=== PATIENT | male | born 1990 | race African-American/Black ===

== ENCOUNTER 2017-05-16 13:36 | Emergency (ER) | payer MEDICAID ==
[~2017-05-16] VITALS: Ht 175.3 cm; Wt 79.4 kg
--- NOTE | 2017-05-16 13:46 | NUR ---
SELF PRESENTS TO ED: SOB, WHEEZING, NAUSEA, VOMITING SINCE AM.
[2017-05-16] MEDS ORDERED: ALBUTEROL FS 2.5 MG/3 ML VIAL.NEB ONE (13:53)
[2017-05-16] MEDS ORDERED: IPRATROPIUM NEB FS 0.5 MG/2.5 ML AMPUL.NEB ONE (13:53)
[2017-05-16] MEDS: ALBUTEROL FS 2.5 MG/3 ML VIAL.NEB NEB ONE (13:57)
[2017-05-16] MEDS: IPRATROPIUM NEB FS 0.5 MG/2.5 ML AMPUL.NEB NEB ONE (13:57)
[2017-05-16] MEDS ORDERED: predniSONE 20 MG TABLET ONE (13:57)
[2017-05-16] MEDS: predniSONE 20 MG TABLET PO ONE (13:58)
[2017-05-16] MEDS: ONDANSETRON 4 MG TAB.RAPDIS SL ONE (13:58)
[2017-05-16] MEDS ORDERED: ONDANSETRON 4 MG TAB.RAPDIS ONE (13:58)
[2017-05-16] MEDS ORDERED: MAG HYDROX/AL HYDROX/SIMETH 30 ML UDC ONE (14:28)
[2017-05-16] MEDS: MAG HYDROX/AL HYDROX/SIMETH 30 ML UDC PO ONE (14:31)
--- NOTE | 2017-05-16 15:05 | NUR ---
Patient discharged to home in stable condition. Written and verbal after care instructions given. Patient verbalizes understanding of instruction.
[2017-05-16 15:06] VITALS: BP 140/83
== END 2017-05-16 15:07 | disposition home or self-care (01) ==
LOC: ER 13:38
DX: J45.901 Unspecified asthma with (acute) exacerbation (principal); F12.90 Cannabis use, unspecified, uncomplicated; Z98.890 Other specified postprocedural states
CPT/HCPCS: A4606; Q0162; Z7610

== ENCOUNTER 2017-09-07 21:18 | Emergency (ER) | payer MEDICAID ==
[~2017-09-07] VITALS: Ht 175.3 cm; Wt 72.6 kg
--- NOTE | 2017-09-07 21:20 | NUR ---
PATIENT RECEIVED FROM HOME STATING "HAVING A HRD TIMED BREATHING MAN AND I WANT TO CLEAR THAT UP". NO PAIN NOTED WELL NO SOB BUT DOES HAVE WHEEZING LEFT LOWER LUNG WITH AUSCULTATION. A/O X4 ABLE TO MAKE NEEDS KNOWN. WILL CONTINUE TO MONITOR OFF 02
[2017-09-07] MEDS ORDERED: predniSONE 20 MG TABLET ONE (21:48)
[2017-09-07] MEDS ORDERED: ALBUTEROL FS 2.5 MG/3 ML VIAL.NEB ONE (21:55)
[2017-09-07] MEDS ORDERED: IPRATROPIUM NEB FS 0.5 MG/2.5 ML AMPUL.NEB NEB ONE (22:00)
[2017-09-07] MEDS ORDERED: ALBUTEROL FS 2.5 MG/3 ML VIAL.NEB CONTNEB ONE (22:00)
[2017-09-07] MEDS ORDERED: predniSONE 20 MG TABLET PO ONE (22:00)
--- NOTE | 2017-09-07 23:10 | NUR ---
Patient discharged to home in stable condition. Written and verbal after care instructions given. Patient verbalizes understanding of instruction. ambulatory with a steady gait
[2017-09-07 23:11] VITALS: BP 132/73
== END 2017-09-07 23:11 | disposition home or self-care (01) ==
LOC: ER 21:21
DX: J45.901 Unspecified asthma with (acute) exacerbation (principal)
CPT/HCPCS: 94644; 99285; A4606; J7512; Z7610

== ENCOUNTER 2017-11-25 16:34 | Emergency (ER) | payer MEDICAID ==
[~2017-11-25] VITALS: Ht 175.3 cm; Wt 74.8 kg
[2017-11-25 17:18] LABS: APPEARANCE,URINE Clear (CLEAR); BILIRUBIN,URINE Negative (NEGATIVE); BLOOD, URINE Negative Ery/uL (NEGATIVE); COLOR,URINE Yellow (YELLOW); KETONES,URINE Negative (NEGATIVE); LEUKOCYTE ESTERASE ,URINE Trace (NEGATIVE); NITRITE, URINE Negative (NEGATIVE); PROTEIN,URINE Negative (NEGATIVE); UGLUCOSE Negative (NEGATIVE); UROBILINOGEN,URINE 0.2 EU/dL (0.2)
[2017-11-25] MEDS ORDERED: ONDANSETRON HCL/PF 4 MG/2 ML VIAL ONE (17:21)
[2017-11-25 17:23] LABS: BASOPHILS # (AUTO) 0.3 /CMM (0.0-0.2); BASOPHILS % (AUTO) 3.6 % (0.0-2.0); EOSINOPHILS # (AUTO) 0.6 /CMM (0.0-0.7); EOSINOPHILS % (AUTO) 6.2 % (0.0-6.0); HEMATOCRIT 49 % (39-51); HEMOGLOBIN 16.5 g/dL (13.5-17.5); LYMPHOCYTES # (AUTO) 1.7 /CMM (0.8-4.8); LYMPHOCYTES % (AUTO) 18.5 % (20.0-44.0); MEAN CORPUSCULAR HEMOGLOBIN 30 PG (26.0-33.0); MEAN CORPUSCULAR HGB CONC 34 g/dl (31.0-36.0); MEAN CORPUSCULAR VOLUME 88 fL (80-96); MONOCYTES # (AUTO) 0.7 /CMM (0.1-1.30); MONOCYTES % (AUTO) 7.6 % (2.0-12.0); NEUTROPHILS # (AUTO) 5.9 /CMM (1.8-8.9); NEUTROPHILS % (AUTO) 64.1 % (43.0-81.0); PLATELET COUNT (AUTO) 216 /CMM (150-450); RDW COEFFICIENT OF VARIATION 13.1 (11.5-15.0); RED BLOOD CELL COUNT(AUTO) 5.53 MIL/uL (4.5-6.0); WHITE BLOOD COUNT (AUTO) 9.2 K/uL (4.3-11.0)
[2017-11-25] MEDS ORDERED: IV NS 0.9% 1,000 ML BAG IV ONE (17:30)
[2017-11-25] MEDS ORDERED: ONDANSETRON HCL/PF 4 MG/2 ML VIAL IVP ONE (17:30)
[2017-11-25 17:32] LABS: BACTERIA,URINE Few /HPF (None Seen); RBC,URINE 0-2 /HPF (0-2); SQUAMOUS EPITHELIAL CELL,UR Few /HPF (None Seen)
--- NOTE | 2017-11-25 17:40 | NUR ---
PT WANTS TO GET SOMETHING FROM HIS CAR, IV WAS REMOVED REQUESTED. FLUIDS DC'D. MADE AWARE.
[2017-11-25 17:43] LABS: ALBUMIN 3.8 g/dL (3.4-5.0); BILIRUBIN,DIRECT 0.2 mg/dL (0.0-0.2); BILIRUBIN,TOTAL 0.5 mg/dL (0.2-1.0); CALCIUM, SERUM 9.3 mg/dL (8.5-10.1); POTASSIUM 3.6 mmol/L (3.5-5.1); TOTAL PROTEIN, SERUM 7.3 g/dL (6.4-8.2)
--- NOTE | 2017-11-25 17:50 | NUR ---
PT REFUSED IV INSERTION. AWARE.
[2017-11-25 18:26] VITALS: BP 138/84
--- NOTE | 2017-11-25 18:26 | NUR ---
Patient discharged to home in stable condition. Written and verbal after care instructions given. Patient verbalizes understanding of instruction.
[2017-11-25] MEDS ORDERED: ONDANSETRON 4 MG TAB.RAPDIS ONE (18:45)
== END 2017-11-25 18:28 | disposition home or self-care (01) ==
LOC: ER 16:36
DX: R11.2 Nausea with vomiting, unspecified (principal); R19.7 Diarrhea, unspecified; R10.13 Epigastric pain; J45.909 Unspecified asthma, uncomplicated
CPT/HCPCS: 36415; 80048; 80076; 81001; 83690; 85025; 87086; 96374; 99284; A4606; J2405; J7030; Q0162; Z7610; 81000-TC

== ENCOUNTER 2018-01-14 04:34 | Emergency (ER) | payer MEDICAID ==
[~2018-01-14] VITALS: Ht 175.3 cm; Wt 77.1 kg
--- NOTE | 2018-01-14 06:30 | NUR ---
PT AMUBLATORY TO ER BED 11. PT BIB SELF, PT C/O MID EPIGASTRIC BURNING X 3 DAYS WITH N/V AND STATES HE NEEDS A MED REFILL. PT PLACED ON MERCHANDISE WORKER. VSS/RESP EVEN UNLABORED/NAD NOTED/SKIN WARM AND DRY/DENIES N-V-D/AFEBRILE/AOX4. AWAITING MD ISAAC.
[2018-01-14] MEDS ORDERED: MAG HYDROX/AL HYDROX/SIMETH 30 ML UDC ONE (06:51)
[2018-01-14] MEDS ORDERED: FAMOTIDINE (20 MG) 20 MG TABLET ONE (06:51)
[2018-01-14] MEDS ORDERED: ONDANSETRON 4 MG TAB.RAPDIS ONE (06:51)
[2018-01-14] MEDS ORDERED: FAMOTIDINE (20 MG) 20 MG TABLET PO ONE (07:00)
[2018-01-14] MEDS ORDERED: ONDANSETRON 4 MG TAB.RAPDIS SL ONE (07:00)
[2018-01-14] MEDS ORDERED: MAG HYDROX/AL HYDROX/SIMETH 30 ML UDC PO ONE (07:00)
--- NOTE | 2018-01-14 07:02 | NUR ---
LAB AT BEDSIDE TO DRAW.
--- NOTE | 2018-01-14 07:12 | NUR ---
ENDORSED TO LARA PICHARDO FOR TOSHIA.
[2018-01-14 07:15] LABS: BASOPHILS % (AUTO) 0.4 % (0.0-2.0); EOSINOPHILS % (AUTO) 10.6 % (0.0-6.0); HEMATOCRIT 48 % (39-51); HEMOGLOBIN 16.2 g/dL (13.5-17.5); LYMPHOCYTES # (AUTO) 1.5 /CMM (0.8-4.8); LYMPHOCYTES % (AUTO) 16.3 % (20.0-44.0); MEAN CORPUSCULAR HGB CONC 34 g/dl (31.0-36.0); MEAN CORPUSCULAR VOLUME 88 fL (80-96); MONOCYTES # (AUTO) 0.6 /CMM (0.1-1.30); MONOCYTES % (AUTO) 6.1 % (2.0-12.0); NEUTROPHILS # (AUTO) 6.1 /CMM (1.8-8.9); NEUTROPHILS % (AUTO) 66.6 % (43.0-81.0); PLATELET COUNT (AUTO) 235 /CMM (150-450); RDW COEFFICIENT OF VARIATION 13.1 (11.5-15.0); RED BLOOD CELL COUNT(AUTO) 5.42 MIL/uL (4.5-6.0); WHITE BLOOD COUNT (AUTO) 9.2 K/uL (4.3-11.0)
[2018-01-14 07:18] LABS: CALCIUM, SERUM 9.5 mg/dL (8.5-10.1); CREATININE 1.2 mg/dL (0.6-1.3); POTASSIUM 3.9 mmol/L (3.5-5.1)
[2018-01-14 07:24] LABS: BILIRUBIN,DIRECT 0.3 mg/dL (0.0-0.2); BILIRUBIN,TOTAL 2.3 mg/dL (0.2-1.0); TOTAL PROTEIN, SERUM 7.7 g/dL (6.4-8.2)
--- NOTE | 2018-01-14 08:57 | NUR ---
Patient discharged to home in stable condition. Written and verbal after care instructions given. Patient verbalizes understanding of instruction.
[2018-01-14 08:58] VITALS: BP 130/80
[2018-01-15] MEDS ORDERED: ALBU8.5H8 INH (14:06)
[2018-01-15] MEDS ORDERED: FLUT10.62 INH (14:06)
== END 2018-01-14 08:58 | disposition home or self-care (01) ==
LOC: ER 04:35
DX: R10.13 Epigastric pain (principal); R11.2 Nausea with vomiting, unspecified; J45.909 Unspecified asthma, uncomplicated; Z60.2 Problems related to living alone
CPT/HCPCS: 36415; 76705-TC; 80048-TC; 80076-TC; 83690-TC; 85025-TC; A4606; Q0162; Z7610

== ENCOUNTER 2018-01-15 08:21 | Inpatient (IN) | payer MEDICAID ==
[~2018-01-15] VITALS: Ht 177.8 cm; Wt 75.3 kg
--- NOTE | 2018-01-15 08:25 | NUR ---
NAUSEA, VOMITING, THROAT PAIN, ABD DISCOMFORT X 4DAYS. NAD NOTED. PT AAO X4, AMB WITH STEADY GAIT. VSS. PENDING MD ISAAC.
[2018-01-15] MEDS ORDERED: KETOROLAC TROMETHAMINE INJ 30 MG/ML VIAL ONE (08:49)
[2018-01-15] MEDS ORDERED: ONDANSETRON HCL/PF 4 MG/2 ML VIAL ONE (08:49)
[2018-01-15 08:57] LABS: APPEARANCE,URINE CLEAR (CLEAR); BILIRUBIN,URINE 2+ (NEGATIVE); BLOOD, URINE NEGATIVE Ery/uL (NEGATIVE); COLOR,URINE DARK YELLO (YELLOW); KETONES,URINE 1+ (NEGATIVE); LEUKOCYTE ESTERASE ,URINE NEGATIVE (NEGATIVE); NITRITE, URINE NEGATIVE (NEGATIVE); PROTEIN,URINE 1+ mg/dl (NEGATIVE); UGLUCOSE NEGATIVE (NEGATIVE); UROBILINOGEN,URINE 0.2 EU/dL (0.2)
[2018-01-15 08:58] LABS: BASOPHILS % (AUTO) 0.4 % (0.0-2.0); EOSINOPHILS % (AUTO) 11.6 % (0.0-6.0); HEMATOCRIT 50 % (39-51); LYMPHOCYTES # (AUTO) 1.9 /CMM (0.8-4.8); LYMPHOCYTES % (AUTO) 19.8 % (20.0-44.0); MEAN CORPUSCULAR HGB CONC 34 g/dl (31.0-36.0); MEAN CORPUSCULAR VOLUME 88 fL (80-96); MONOCYTES # (AUTO) 0.8 /CMM (0.1-1.30); MONOCYTES % (AUTO) 8.1 % (2.0-12.0); NEUTROPHILS # (AUTO) 5.6 /CMM (1.8-8.9); NEUTROPHILS % (AUTO) 60.1 % (43.0-81.0); PLATELET COUNT (AUTO) 232 /CMM (150-450); RDW COEFFICIENT OF VARIATION 12.1 (11.5-15.0); RED BLOOD CELL COUNT(AUTO) 5.67 MIL/uL (4.5-6.0); WHITE BLOOD COUNT (AUTO) 9.4 K/uL (4.3-11.0)
[2018-01-15] MEDS ORDERED: IV NS 0.9% 1,000 ML BAG IV ONE ×2 (09:00→13:00)
[2018-01-15] MEDS ORDERED: KETOROLAC TROMETHAMINE INJ 30 MG/ML VIAL IV ONE (09:00)
[2018-01-15] MEDS ORDERED: ONDANSETRON HCL/PF 4 MG/2 ML VIAL IVP ONE (09:00)
[2018-01-15 09:11] LABS: CALCIUM, SERUM 9.4 mg/dL (8.5-10.1); CREATININE 1.2 mg/dL (0.6-1.3); POTASSIUM 3.7 mmol/L (3.5-5.1)
[2018-01-15 09:19] LABS: ALBUMIN 4.2 g/dL (3.4-5.0); BILIRUBIN,DIRECT 0.4 mg/dL (0.0-0.2); BILIRUBIN,TOTAL 2.7 mg/dL (0.2-1.0); TOTAL PROTEIN, SERUM 7.9 g/dL (6.4-8.2)
[2018-01-15] MEDS ORDERED: ALBUTEROL FS 2.5 MG/0.5 ML VIAL.NEB ONE ×2 (09:30→09:58)
[2018-01-15] MEDS ORDERED: MAG HYDROX/AL HYDROX/SIMETH 30 ML UDC PO ONE (09:30)
[2018-01-15] MEDS ORDERED: ALBUTEROL FS 2.5 MG/0.5 ML VIAL.NEB NEB ONE ×2 (09:30→10:00)
[2018-01-15] MEDS ORDERED: MAG HYDROX/AL HYDROX/SIMETH 30 ML UDC ONE (09:31)
--- NOTE | 2018-01-15 09:35 | NUR ---
PT REPORTS SOB, PAGED RT FOR BREATHING TX. RT AT BEDISDE WITH BREATHING TX.
--- NOTE | 2018-01-15 09:45 | NUR ---
PT AGREED TO CT SCAN AFTER BREATHING TX.
[2018-01-15] MEDS ORDERED: DEXAMETHASONE SOD PHOSPHATE 10 MG/ML VIAL ONE (09:57)
[2018-01-15] MEDS ORDERED: IPRATROPIUM NEB FS 0.5 MG/2.5 ML AMPUL.NEB ONE (09:58)
[2018-01-15] MEDS ORDERED: DEXAMETHASONE SOD PHOSPHATE 10 MG/ML VIAL IV ONE (10:00)
[2018-01-15] MEDS ORDERED: IPRATROPIUM NEB FS 0.5 MG/2.5 ML AMPUL.NEB NEB ONE (10:00)
--- NOTE | 2018-01-15 10:03 | NUR ---
2ND DOSE OF BREATHING TX GIVEN BY RT
[2018-01-15 11:11] LABS: BACTERIA,URINE Rare /HPF (None Seen); MUCUS,URINE Few /LPF (None Seen); RBC,URINE 0-2 /HPF (0-2); SQUAMOUS EPITHELIAL CELL,UR Rare /HPF (None Seen); WBC,URINE 0-2 /HPF (0-3)
[2018-01-15] MEDS ORDERED: AZITHROMYCIN 500 MG in IV D5W 250 ML IV ONE (13:30)
[2018-01-15] MEDS ORDERED: CEFTRIAXONE 1GM BAG (ER ONLY) 1 GM/50 ML PIGGYBACK IV ONE (13:30)
[2018-01-15] MEDS ORDERED: CEFTRIAXONE 1GM BAG (ER ONLY) 50 ML IV ONE (13:36)
--- NOTE | 2018-01-15 13:36 | NUR ---
CALLED NURSING SUP. FOR TELE BED
[2018-01-15] MEDS ORDERED: ALBU8.5H8 INH (14:06)
[2018-01-15] MEDS ORDERED: FLUT10.62 INH (14:06)
--- NOTE | 2018-01-15 14:13 | NUR ---
TELE 115-1 LIGIA
[2018-01-15] MEDS ORDERED: ZOLPIDEM TARTRATE 5 MG TABLET PO PRN (15:00)
[2018-01-15] MEDS ORDERED: MAG HYDROX/AL HYDROX/SIMETH 30 ML UDC PO PRN (15:00)
[2018-01-15] MEDS ORDERED: MAGNESIUM HYDROXIDE 30 ML UDC PO PRN (15:00)
[2018-01-15] MEDS ORDERED: ONDANSETRON HCL/PF 4 MG/2 ML VIAL IVP PRN (15:00)
[2018-01-15] MEDS ORDERED: Z GUARD REMEDY 2 OZ OINT TP PRN (15:00)
[2018-01-15] MEDS ORDERED: ACETAMINOPHEN 325 MG TABLET PO PRN (15:00)
[2018-01-15] MEDS: PANTOPRAZOLE 40 MG VIAL IV SCH (15:28)
[2018-01-15] MEDS: IV D5W 1,000 ML IV PRN (15:28)
--- NOTE | 2018-01-15 15:30 | NUR ---
RN NOTE RECEIVED PT ON BED, AOX4, CO ABDOMINAL DISCOMFORT AND HUNGER, PT WANTS TO EAT, VS STABLE, NO SOB, NO N/V, IV IN PLACE ZITHROMAX INFUSING, FRIEND AT BED SIDE. CALL LIGHT WITHIN REACH, WILL WAIT FOR ADMITING ORDERS.
[2018-01-15 16:00] VITALS: BP 114/62
[2018-01-15] MEDS: METRONIDAZOLE 500MG/ NS 100ML 500 MG in PREMIX 1 EA IV SCH ×2 (16:34→23:27)
[2018-01-15] MEDS: HYDROCODONE/APAP 5/325MG 1 EACH TABLET PO PRN ×2 (16:34→20:34)
--- NOTE | 2018-01-15 19:30 | NUR ---
INSOLE LIP TURNER NOTES, RECEIVED PATIENT IN BED, ALERT AND ORIENTED, ABLE TO COMMUNICATE NEEDS AND CONCERNS, BREATHING EVEN AND UNLABORED, NO SOB/ACUTE DISTRESS NOTED AT THIS TIME, PATIENT NPO AT THIS TIME, WILL HAVE GI CONSULT IN THE MORNING, C/O HUNGER AND ACCORDING TO HIM THAT'S BECAUSE HES HUNGRY, WILL INFORM MD. ALL NEEDS PROVIDED AND , CALL LIGHT W/I REACH, WILL CONTINUE TO MONITOR CLOSELY.
[2018-01-15 20:00] VITALS: BP 117/69
--- NOTE | 2018-01-15 20:10 | NUR ---
DIMENSIONAL INSPECTOR NOTES, PAGED MD TO INFORM ABOUT PATIENT COMPLAIN, AND REQUESTING FOOD. AWAITING FOR REPLY.
--- NOTE | 2018-01-15 20:30 | NUR ---
PAINTINGS RESTORER NOTES, MD ISIDRO POT PRESS OPERATOR REPLIED THAT PATIENT NEEDS TO BE NPO AND TO ADMINISTER MEDICATIONS FOR PAIN ORDERED, IN ADDITION IF PATIENT HAS SEVERE PAIN, INCLUDE A NEW ORDER FOR MORPHINE 1MG IPV [id number] PRN FOR SEVERE PAIN. NOTED AND CARRIED OUT.
[2018-01-15] MEDS ORDERED: MORPHINE SULFATE INJ 4 MG/ML DISP.SYRIN IV PRN (21:00)
[2018-01-15] MEDS: ALBUTEROL FS 2.5 MG/3 ML VIAL.NEB NEB PRN (22:07)
[2018-01-15] MEDS: IPRATROPIUM NEB FS 0.5 MG/2.5 ML AMPUL.NEB NEB PRN (22:07)
[2018-01-15] MEDS: methylPREDNISolone SOD SUCC 40 MG/ML VIAL IV SCH (23:51)
[2018-01-16] VITALS: BP 128/68
[2018-01-16] MEDS: ALBUTEROL FS 2.5 MG/3 ML VIAL.NEB NEB PRN ×2 (00:52→07:32)
[2018-01-16] MEDS: IPRATROPIUM NEB FS 0.5 MG/2.5 ML AMPUL.NEB NEB PRN ×2 (00:52→07:32)
[2018-01-16 04:00] VITALS: BP 121/54
--- NOTE | 2018-01-16 06:50 | NUR ---
FISH DRIER NOTES, PATIENT IN BED, SLEEPING AT THIS TIME, , NO SOB/ACUTE DISTRESS NOTED AT THIS TIME, PATIENT NPO AT THIS TIME, WILL HAVE GI CONSULT IN THE MORNING, NO C/O PAIN OR DISCOMFORT AT THIS TIME, AND NO SIGNIFICANT CHANGE OF CONDITION THROUGHOUT THE SHIFT, ALL NEEDS PROVIDED AND , CALL LIGHT W/I REACH, WILL ENDORSE CONTINUITY OF CARE TO ONCOMING NURSE.
--- NOTE | 2018-01-16 07:43 | NUR ---
RN INITIAL NOTE PATIENT IN BED GIRLFRIEND AT BEDSIDE, NO DISTRESS NOTED AT THIS TIME PLAN OF CARE DISCUSSED WITH THE PATIENT. NO SOB NOTED PATIENT ON ROOM AIR , CURRENTLY NPO AWAITING FURTHER ORDERS FROM THE MD FOR PROCEDURE
[2018-01-16 08:00] VITALS: BP 123/69
[2018-01-16 08:04] LABS: BASOPHILS # (AUTO) 0.2 /CMM (0.0-0.2); BASOPHILS % (AUTO) 2.4 % (0.0-2.0); EOSINOPHILS % (AUTO) 0.1 % (0.0-6.0); HEMATOCRIT 43 % (39-51); HEMOGLOBIN 14.6 g/dL (13.5-17.5); LYMPHOCYTES # (AUTO) 1.1 /CMM (0.8-4.8); LYMPHOCYTES % (AUTO) 11.4 % (20.0-44.0); MEAN CORPUSCULAR HGB CONC 34 g/dl (31.0-36.0); MEAN CORPUSCULAR VOLUME 88 fL (80-96); MONOCYTES # (AUTO) 0.5 /CMM (0.1-1.30); MONOCYTES % (AUTO) 4.9 % (2.0-12.0); NEUTROPHILS # (AUTO) 7.9 /CMM (1.8-8.9); NEUTROPHILS % (AUTO) 81.2 % (43.0-81.0); PLATELET COUNT (AUTO) 215 /CMM (150-450); RDW COEFFICIENT OF VARIATION 12.2 (11.5-15.0); RED BLOOD CELL COUNT(AUTO) 4.88 MIL/uL (4.5-6.0); WHITE BLOOD COUNT (AUTO) 9.7 K/uL (4.3-11.0)
[2018-01-16 08:10] LABS: ALBUMIN 3.4 g/dL (3.4-5.0); BILIRUBIN,DIRECT 0.2 mg/dL (0.0-0.2); BILIRUBIN,TOTAL 1.4 mg/dL (0.2-1.0); CALCIUM, SERUM 8.8 mg/dL (8.5-10.1); CREATININE 1.1 mg/dL (0.6-1.3); MAGNESIUM 1.9 mg/dL (1.8-2.4); POTASSIUM 4.3 mmol/L (3.5-5.1); TOTAL PROTEIN, SERUM 6.5 g/dL (6.4-8.2)
[2018-01-16] MEDS: methylPREDNISolone SOD SUCC 40 MG/ML VIAL IV SCH ×3 (09:03→17:58)
[2018-01-16] MEDS: METRONIDAZOLE 500MG/ NS 100ML 500 MG in PREMIX 1 EA IV SCH ×3 (09:03→23:43)
[2018-01-16] MEDS: PANTOPRAZOLE 40 MG VIAL IV SCH (09:03)
[2018-01-16] MEDS: HYDROCODONE/APAP 5/325MG 1 EACH TABLET PO PRN ×2 (11:30→21:06)
[2018-01-16 12:00] VITALS: BP 104/71
[2018-01-16 12:02] LABS: LYMPHOCYTES % (MANUAL) 13 % (16-48); MONOCYTES % (MANUAL) 4 % (0-11.0); NEUTROPHILS % (MANUAL) 83 (42-76)
[2018-01-16] MEDS ORDERED: CEFTRIAXONE 1 G in IV D5W 50 ML IV SCH (14:00)
[2018-01-16] MEDS: FLUTICASONE 110MCG 1 EA INHALER IH SCH ×2 (14:20→18:02)
[2018-01-16 16:00] VITALS: BP 116/60
[2018-01-16 19:23] LABS: OCCULT BLOOD STOOL NEGATIVE (NEGATIVE)
--- NOTE | 2018-01-16 19:30 | NUR ---
FISH GRADER INITIAL NOTES, RECEIVED PATIENT IN BED, ALERT AND ORIENTED, ABLE TO COMMUNICATE NEEDS AND CONCERNS, GIRLFRIEND AT BEDSIDE, BREATHING EVEN AND UNLABORED, NO SOB/ACUTE DISTRESS NOTED AT THIS TIME, NO A/C PAIN OR DISCONFORT AT THIS TIME, FROM NPO TO CLEAR LIQUIDS AT THIS TIME, ALL NEEDS PROVIDED AND ANTICIPATED, CALL LIGHT W/I REACH, WILL CONTINUE TO MONITOR CLOSELY.
--- NOTE | 2018-01-16 19:37 | NUR ---
pattern technician note patient remains stable throughout the day mild pain noted , pain attended to patient girlfriend remains at bedside patient remains on tele monitoring sinus rhythm noted , patient able to make needs known no distress noted at this time. patient ambulatory , and currently tolerating clear liquids weel patient updated on plan of care based of of MD / DNP notes. RN spoke with ANH Evans in regards to continuation of care .
[2018-01-17] VITALS: BP 128/77
[2018-01-17] MEDS: ALBUTEROL FS 2.5 MG/3 ML VIAL.NEB NEB PRN
--- NOTE | 2018-01-17 01:40 | NUR ---
CREW MANAGER NOTES, ENDORSED PATIENT TO LARA HYMAN FOR CONTINUATION OF CARE.
[2018-01-17 04:00] VITALS: BP 119/64
[2018-01-17] MEDS: IV D5W 1,000 ML IV PRN (04:20)
--- NOTE | 2018-01-17 06:35 | NUR ---
RN NOTES NO ACUTE CHANGES NOTED AT THIS TIME, NO COMPLINE OF PAIN, N/V OR ANY DISCOMFORT. ALL MEDS ARE GIVEN IN TIMELY MANNERS. PT CARE WILL BE ENDORSE TO AM NURSE.
--- NOTE | 2018-01-17 07:38 | NUR ---
RN INITIAL NOTE PATIENT IN BED GIRLFRIEND AT BEDSIDE, NO DISTRESS NOTED AT THIS TIME PLAN OF CARE DISCUSSED WITH THE PATIENT. NO SOB NOTED PATIENT ON ROOM AIR , CURRENTLY TOLERATING CLEAR LIQUID DIET WELL AWAITING FURTHER ORDERS FROM THE MD FOR PROCEDURE OR ADVANCEMENT OF DIET
[2018-01-17 08:00] VITALS: BP 113/65
[2018-01-17] MEDS: METRONIDAZOLE 500MG/ NS 100ML 500 MG in PREMIX 1 EA IV SCH (08:00)
[2018-01-17] MEDS: PANTOPRAZOLE 40 MG VIAL IV SCH (09:00)
[2018-01-17] MEDS: methylPREDNISolone SOD SUCC 40 MG/ML VIAL IV SCH (09:00)
[2018-01-17] MEDS: FLUTICASONE 110MCG 1 EA INHALER IH SCH (09:00)
--- NOTE | 2018-01-17 10:31 | NUR ---
RN NOTE PATIENT DISCHARGE PAPERWORK REVIEWED AND DISCUSSED VIA ELECTROMECHANIC STACIA AND RN , PATIENT VERBALIZED UNDERSTANDING PATIENT IV REMOVED AND PATIENT IS STABLE AT THIS TIME , PATIENT MORNING MEDICATIONS NOT ADMINISTERED DUE IV NOT PROPERLY WORKING LEAKING AND BURNING AT IV SITE ASSESSED PATIETN IN STABLE CONDITION NO PAIN OR SOB NOTED.
[2018-01-17] MEDS ORDERED: ONDA4TAB5 PO (10:38)
[2018-01-17] MEDS ORDERED: HYDR-552 PO (10:38)
[2018-01-17] MEDS ORDERED: ALBUTEROL SULFATE 8 GM HFA.AER.AD IH PRN (11:00)
[2018-01-17] MEDS ORDERED: ALBU8.5H8 INH (11:16)
== END 2018-01-17 11:00 | disposition home or self-care (01) | DRG 248 ==
LOC: ER 08:22 → TELE1 14:20 → MEDSG1 01-17 08:53
PROVIDERS: ADMIT Hospitalist; ATTEND Hospitalist
DX: A04.72 Enterocolitis due to Clostridium difficile, not specified as recurrent (principal); T17.890A Other foreign object in other parts of respiratory tract causing asphyxiation, initial encounter; E87.1 Hypo-osmolality and hyponatremia; J45.901 Unspecified asthma with (acute) exacerbation; E78.5 Hyperlipidemia, unspecified; F12.90 Cannabis use, unspecified, uncomplicated; X58.XXXA Exposure to other specified factors, initial encounter; Y93.9 Activity, unspecified; Y92.009 Unspecified place in unspecified non-institutional (private) residence as the place of occurrence of the external cause; E80.6 Other disorders of bilirubin metabolism; E80.4 Gilbert syndrome; R93.5 Abnormal findings on diagnostic imaging of other abdominal regions, including retroperitoneum; J22 Unspecified acute lower respiratory infection
CPT/HCPCS: 36415; 71045-TC; 80048-TC; 80053-TC; 80061-TC; 80076-TC; 80305; 81000-TC; 82247-TC; 82248-TC; 82272-TC; 83690-TC; 83735-TC; 84100-TC; 85025-TC; 87045-TC; 87081-TC; 87177; 87209; 89055; A4216; A4606; A6402; C9113; J0456; J0696; J1100; J1885; J2405; J2920; J3490; J7030; J7060; J7070; Z7610

== ENCOUNTER 2018-02-03 21:25 | Emergency (ER) | payer SELFPAY ==
[~2018-02-03] VITALS: Ht 167.6 cm; Wt 77.1 kg
[~2018-02-03 21:25] MED LIST: ALBU8.5H8 INH; FLUT10.62 INH; HYDR-552 PO; ONDA4TAB5 PO
--- NOTE | 2018-02-03 21:40 | NUR ---
PT PRESENTED TO THE ER WITH A C/O ASTHMA/SOB. PT HAS A HX OF ASTHMA, BUT STATED THAT HIS INHALERS WERE NOT WORKING. PT HAS BILATERAL WHEEZES. PT IS ON THE MONITOR AND CONTINUOUS PULSE OX. PT IS SATURATING AT 98% ON RA. PT AMBULATED TO BED WITH A STEADY GAIT.
[2018-02-03] MEDS ORDERED: Magnesium 1GM/D5W 100ML PREMIX 200 ML IV ONE ×2 (21:45→21:59)
--- NOTE | 2018-02-03 21:50 | NUR ---
18G LAC IV STARTED BY LARA MATHIS. BLOOD WAS DRAWN AND SENT TO LAB.
[2018-02-03] MEDS ORDERED: IPRATROPIUM NEB FS 0.5 MG/2.5 ML AMPUL.NEB ONE ×2 (21:54→23:11)
[2018-02-03] MEDS ORDERED: ALBUTEROL FS 2.5 MG/3 ML VIAL.NEB ONE ×2 (21:54→23:11)
[2018-02-03] MEDS ORDERED: ONDANSETRON HCL/PF 4 MG/2 ML VIAL ONE (21:58)
[2018-02-03] MEDS ORDERED: methylPREDNISolone SOD SUCC 125 MG/2ML VIAL ONE (21:58)
[2018-02-03] MEDS ORDERED: MORPHINE SULFATE INJ 4 MG/ML DISP.SYRIN ONE (21:59)
[2018-02-03 22:00] LABS: BASOPHILS % (AUTO) 0.6 % (0.0-2.0); EOSINOPHILS % (AUTO) 11.3 % (0.0-6.0); HEMATOCRIT 44 % (39-51); HEMOGLOBIN 14.9 g/dL (13.5-17.5); LYMPHOCYTES # (AUTO) 1.6 /CMM (0.8-4.8); LYMPHOCYTES % (AUTO) 27.9 % (20.0-44.0); MEAN CORPUSCULAR HGB CONC 34 g/dl (31.0-36.0); MEAN CORPUSCULAR VOLUME 89 fL (80-96); MONOCYTES # (AUTO) 0.5 /CMM (0.1-1.30); MONOCYTES % (AUTO) 8.6 % (2.0-12.0); NEUTROPHILS % (AUTO) 51.6 % (43.0-81.0); PLATELET COUNT (AUTO) 219 /CMM (150-450); RDW COEFFICIENT OF VARIATION 12.8 (11.5-15.0); RED BLOOD CELL COUNT(AUTO) 4.93 MIL/uL (4.5-6.0); WHITE BLOOD COUNT (AUTO) 5.8 K/uL (4.3-11.0)
[2018-02-03] MEDS ORDERED: MORPHINE SULFATE INJ 2 MG/ML DISP.SYRIN IV ONE (22:00)
[2018-02-03] MEDS ORDERED: IV NS 0.9% 500 ML BAG IV ONE (22:00)
[2018-02-03] MEDS ORDERED: ALBUTEROL FS 2.5 MG/3 ML VIAL.NEB CONTNEB ONE (22:00)
[2018-02-03] MEDS ORDERED: IPRATROPIUM NEB FS 0.5 MG/2.5 ML AMPUL.NEB NEB ONE ×2 (22:00→23:00)
[2018-02-03] MEDS ORDERED: ONDANSETRON HCL/PF 4 MG/2 ML VIAL IVP ONE (22:00)
[2018-02-03] MEDS ORDERED: methylPREDNISolone SOD SUCC 125 MG/2ML VIAL IV ONE (22:00)
--- NOTE | 2018-02-03 22:02 | NUR ---
IV FLUID STARTED.
--- NOTE | 2018-02-03 22:04 | NUR ---
BREATHING TX STARTED.
--- NOTE | 2018-02-03 22:06 | NUR ---
PT REC'D MEDICATION ORDERED.
[2018-02-03 22:11] LABS: CALCIUM, SERUM 9.5 mg/dL (8.5-10.1); CARBON DIOXIDE 29 mmol/L (21-32); CHLORIDE 104 mmol/L (98-107); GLUCOSE 93 mg/dL (74-106); POTASSIUM 3.1 mmol/L (3.5-5.1); SODIUM SERUM 141 mmol/L (136-145); UREA NITROGEN, BLOOD 5 mg/dL (7-18)
[2018-02-03 22:17] LABS: ALANINE AMINOTRANSFERASE 57 U/L (12-78); ALBUMIN 4.1 g/dL (3.4-5.0); ALKALINE PHOSPHATASE 51 U/L (46-116); ASPARTATE AMINOTRANSFERASE 15 U/L (15-37); BILIRUBIN,DIRECT 0.2 mg/dL (0.0-0.2); BILIRUBIN,TOTAL 1.5 mg/dL (0.2-1.0); LIPASE 119 U/L (73-393); TOTAL PROTEIN, SERUM 7.2 g/dL (6.4-8.2)
[2018-02-03 22:19] LABS: TROPONIN I < 0.017 ng/mL (0.00-0.056)
[2018-02-03] MEDS ORDERED: predniSONE 20 MG TABLET ONE (22:57)
[2018-02-03] MEDS ORDERED: POTASSIUM CHLORIDE 20 MEQ TAB.PRT.SR PO ONE ×2 (22:57→23:00)
--- NOTE | 2018-02-03 22:58 | NUR ---
PT REC'D MEDICATION ORDERED.
[2018-02-03] MEDS ORDERED: predniSONE 20 MG TABLET PO ONE (23:00)
[2018-02-03] MEDS ORDERED: ALBUTEROL FS 2.5 MG/3 ML VIAL.NEB NEB ONE (23:00)
--- NOTE | 2018-02-03 23:10 | NUR ---
MAGNESIUM IVPB STARTED.
--- NOTE | 2018-02-03 23:19 | NUR ---
2ND BREATHING TX IN PROGRESS
[2018-02-03] MEDS ORDERED: KETOROLAC TROMETHAMINE 15 MG/ML VIAL ONE (23:27)
[2018-02-03] MEDS ORDERED: KETOROLAC TROMETHAMINE INJ 30 MG/ML VIAL IV ONE (23:30)
--- NOTE | 2018-02-04 01:34 | NUR ---
IV removed. Catheter intact and site benign. Pressure and 4x4 applied to site. No bleeding noted. Patient discharged to home in stable condition. Written and verbal after care instructions given. Patient verbalizes understanding of instruction AND RX. PT HAS BILATERAL UPPER WHEEZES. PT IS SATURATING AT 95% ON RA. PT IS SPEAKING IN FULL SENTENCES. NO SOB NOTED. PT WANTED TO SPEAK FURTHER WITH THE DR, BUT WAS NOT ABLE TO DUE TO THE MD BEING BUSY WITH ANOTHER PT. PT WAS APPEARED UPSET, BUT AMBULATED OUT WITH A STEADY GAIT. VSS.
[2018-02-04 02:05] VITALS: BP 123/65
== END 2018-02-04 01:38 | disposition home or self-care (01) ==
LOC: ER 21:26
DX: J45.909 Unspecified asthma, uncomplicated (principal); E87.6 Hypokalemia; G89.29 Other chronic pain; R79.89 Other specified abnormal findings of blood chemistry; E78.5 Hyperlipidemia, unspecified; Z60.2 Problems related to living alone
CPT/HCPCS: 36415; 71045-TC; 80048-TC; 80076-TC; 83690-TC; 84484-TC; 85025-TC; A4606; J1885; J2270; J2405; J2930; J3475; J7040; Z7610

== ENCOUNTER 2018-02-22 07:54 | Emergency (ER) | payer SELFPAY ==
[~2018-02-22] VITALS: Ht 175.3 cm; Wt 79.4 kg
--- NOTE | 2018-02-22 08:10 | NUR ---
PRESENTS TO ER C/O DIFFUSE ABDOMINAL PAIN N/V/D X 2 DAYS. PATIENT IS A/OX 4, BREATHING EVEN AND UNLABORED. NO SOB, NAD, VITALS STABLE. SAFETY AND COMFORT MEASURES IN PLACE. AWAITING MD ORDERS.
[2018-02-22] MEDS ORDERED: ONDANSETRON HCL/PF 4 MG/2 ML VIAL ONE ×2 (09:07→10:17)
[2018-02-22] MEDS ORDERED: PANTOPRAZOLE 40 MG VIAL ONE ×2 (09:07→10:17)
[2018-02-22] MEDS ORDERED: MORPHINE SULFATE INJ 4 MG/ML DISP.SYRIN ONE (09:07)
--- NOTE | 2018-02-22 09:10 | NUR ---
NEW IV STARTED ON RAC, 18G. BLOOD DRAWN AND SENT TO LAB.
[2018-02-22 09:16] LABS: BASOPHILS % (AUTO) 0.3 % (0.0-2.0); EOSINOPHILS % (AUTO) 10.5 % (0.0-6.0); HEMATOCRIT 46 % (39-51); HEMOGLOBIN 15.6 g/dL (13.5-17.5); LYMPHOCYTES # (AUTO) 1.5 /CMM (0.8-4.8); LYMPHOCYTES % (AUTO) 21.1 % (20.0-44.0); MEAN CORPUSCULAR HGB CONC 34 g/dl (31.0-36.0); MEAN CORPUSCULAR VOLUME 88 fL (80-96); MONOCYTES # (AUTO) 0.5 /CMM (0.1-1.30); MONOCYTES % (AUTO) 7.3 % (2.0-12.0); NEUTROPHILS # (AUTO) 4.2 /CMM (1.8-8.9); NEUTROPHILS % (AUTO) 60.8 % (43.0-81.0); PLATELET COUNT (AUTO) 237 /CMM (150-450); RDW COEFFICIENT OF VARIATION 12.7 (11.5-15.0); RED BLOOD CELL COUNT(AUTO) 5.27 MIL/uL (4.5-6.0); WHITE BLOOD COUNT (AUTO) 6.9 K/uL (4.3-11.0)
--- NOTE | 2018-02-22 09:22 | NUR ---
PATIENT MEDICATED PER MD ORDERS.
[2018-02-22] MEDS ORDERED: ALBUTEROL FS 2.5 MG/0.5 ML VIAL.NEB NEB ONE (09:30)
[2018-02-22] MEDS ORDERED: ONDANSETRON HCL/PF 4 MG/2 ML VIAL IV ONE ×2 (09:30→10:30)
[2018-02-22] MEDS ORDERED: PANTOPRAZOLE 40 MG VIAL IV ONE ×2 (09:30→10:30)
[2018-02-22] MEDS ORDERED: MORPHINE SULFATE INJ 2 MG/ML DISP.SYRIN IV ONE (09:30)
[2018-02-22] MEDS ORDERED: IV NS 0.9% 1,000 ML BAG IV ONE (09:30)
[2018-02-22 09:36] LABS: ALBUMIN 3.9 g/dL (3.4-5.0); BILIRUBIN,DIRECT 0.2 mg/dL (0.0-0.2); BILIRUBIN,TOTAL 1.1 mg/dL (0.2-1.0); CALCIUM, SERUM 9.3 mg/dL (8.5-10.1); POTASSIUM 3.9 mmol/L (3.5-5.1); TOTAL PROTEIN, SERUM 7.3 g/dL (6.4-8.2)
[2018-02-22] MEDS ORDERED: ALBUTEROL FS 2.5 MG/0.5 ML VIAL.NEB ONE (09:39)
--- NOTE | 2018-02-22 09:40 | NUR ---
RT AT BEDSIDE FOR TREATMENT
--- NOTE | 2018-02-22 10:26 | NUR ---
PER DR. FOFANA GIVE SECOND DOSE OF ZOFRAN 4MG IV AND PROTONIX 40MG IV. MEDICATION GIVEN VIA RAC, 18G.
--- NOTE | 2018-02-22 10:40 | NUR ---
PATIENT TAKEN TO CT VIA WHEELCHAIR.
[2018-02-22] MEDS ORDERED: IOHEXOL-300 100 ML VIAL IV ONE (10:42)
[2018-02-22] MEDS ORDERED: IV NS 0.9% 500 ML IV ONE (10:42)
[2018-02-22] MEDS ORDERED: CT SWABBABLE VALVE TRANS SET 1 EA INFUS.SET MC ONE (10:42)
--- NOTE | 2018-02-22 10:51 | NUR ---
PATIENT RETURNED FROM CT IN STABLE CONDITION.
[2018-02-22 13:11] VITALS: BP 139/82
== END 2018-02-22 13:00 | disposition home or self-care (01) ==
LOC: ER 07:56
DX: J45.901 Unspecified asthma with (acute) exacerbation (principal); R10.13 Epigastric pain; R11.2 Nausea with vomiting, unspecified; Z60.2 Problems related to living alone
CPT/HCPCS: 36415; 74160; 80048; 80076; 83690; 85025; 94640; 96361; 96374; 96375; 96376; 99285; A4606; C9113 ×2; J2270; J2405 ×2; J7030; J7040; Q9967; Z7610

== ENCOUNTER 2018-03-17 11:00 | Emergency (ER) | payer SELFPAY ==
[~2018-03-17] VITALS: Ht 180.3 cm; Wt 77.1 kg
--- NOTE | 2018-03-17 11:00 | NUR ---
A/O X4. VSS. NEG ACUTE DISTRESS. STABLE CONDITION. NEG N/V. HIT IN THE HEAD WITH A BAT LAST NIGHT, NOW C/O KERN 9/10 BLURRY VISION, VOMITED X1. SAFETY MEASURES IN PLACE.
[2018-03-17 12:11] VITALS: BP 138/70
== END 2018-03-17 12:10 | disposition home or self-care (01) ==
LOC: ER 11:03
DX: S09.8XXA Other specified injuries of head, initial encounter (principal); R51 Headache; J45.909 Unspecified asthma, uncomplicated; Z60.2 Problems related to living alone; Y04.8XXA Assault by other bodily force, initial encounter; Y93.89 Activity, other specified; Y92.89 Other specified places as the place of occurrence of the external cause; Y99.8 Other external cause status
CPT/HCPCS: 70450-TC; 73080-TC; A4606; Z7610